=== PATIENT | male | born 1995 | race Caucasian/White ===

== ENCOUNTER 2022-12-10 20:20 | Emergency (ER) | payer SELFPAY ==
[~2022-12-10] VITALS: Ht 177.8 cm; Wt 113.4 kg
[2022-12-10 20:30] VITALS: BP 138/75; PULSE 70; RESP 17; TEMP 98; O2SAT 97
== END 2022-12-10 22:46 | disposition home or self-care (01) ==
LOC: MED 20:20
DX: S91.204A Unspecified open wound of right lesser toe(s) with damage to nail, initial encounter (principal); X58.XXXA Exposure to other specified factors, initial encounter; Y93.89 Activity, other specified; Y92.89 Other specified places as the place of occurrence of the external cause; Y99.8 Other external cause status
CPT/HCPCS: 73630; 99283